=== PATIENT | male | born 1955 | race Caucasian/White ===

== ENCOUNTER 2020-04-28 08:33 | Emergency (ER) | payer OTHER ==
[~2020-04-28] VITALS: Ht 167.6 cm; Wt 68.0 kg
[~2020-04-28 08:33] MED LIST: AUGMENTIN 875-1 EACH PO; LITHIUM CARBON300 M3 PO; PROPRANOLOL 1010 M1 PO; RISPERDAL0.5 MG PO; RISPERDAL4 M1 PO; TRILEPTAL600 MG PO
[2020-04-28] MEDS ORDERED: VISTARIL 25 MG25 M1 PO (08:53)
--- NOTE | 2020-04-28 09:21 | EKG ---
[facility] [address] [email or web address] [address] ELECTROCARDIOGRAM REPORT Name: XOCHITL COBB Room #: [facility]..#: [id number] Admission: Attend Phys: Discharge: Date of : 57 Report #: [id number] THIS REPORT FOR: cc: Bob Killian MD [facility] ~ THIS REPORT FOR: //name// [facility] ED Test Date: 2020-04-28 Test Time: 08:35:08 Pat Name: XOCHITL COBB Department: Room: Gender: Jewel Lathe Operator: MAISHA : 1955 Requested By: Cristhian Zabala Order Number: [id number] MD: Bob Killian Measurements Intervals [place] Rate: 112 P: 79 MD: 146 QRS: 247 QRSD: 92 T: 75 QT: 335 QTc: 458 Interpretive Statements Sinus tachycardia Poor R wave progression Compared to ECG 05/04/2014 22:57:20 Heart rate has increased Electronically Signed On 04-28-2020 9:21:10 CDT by Bob Killian [email or web address] <ELECTRONICALLY SIGNED> By: Bob Killian MD, FACC 04/28/20 0921 0835 0835 Bob Killian MD, FACC /EPI
[2020-04-28 09:23] LABS: ANION GAP 10 mmol/L (7-16); APTT 25.7 Seconds (24.5-32.8); BUN 17 mg/dL (7-18); CALCIUM 8.9 mg/dL (8.5-10.1); CHLORIDE 107 mmol/L (98-107); CO2 26 mmol/L (21-32); CREATININE 1.9 mg/dL (0.7-1.3); GLUCOSE 109 mg/dL (74-106); POTASSIUM 3.9 mmol/L (3.5-5.1); PROTIME 10.1 Seconds (9.3-11.4); SODIUM 143 mmol/L (136-145)
[2020-04-28 09:32] LABS: ALBUMIN 3.6 g/dL (3.4-5.0); MAGNESIUM 2.1 mg/dL (1.8-2.4); SGOT 18 U/L (15-37); SGPT 16 U/L (30-65); TOTAL BILIRUBIN 0.2 mg/dL (0.2-1.0); TOTAL PROTEIN 7.2 g/dL (6.4-8.2); TROPONIN-I <0.06 ng/mL (<0.06)
[2020-04-28 09:32] LABS: BE(vivo) -1.1 mmol/L (-2 to +3); HCO3 24.8 mmol/L (22.0-26.0); PCO2 VENOUS 45.9 mmHg (41.0-51.0); PO2 VENOUS 60.3 mmHg (35.0-45.0)
[2020-04-28 09:41] LABS: ABSOLUTE NEUTROPHILS 4.5 thou/uL (1.4-8.2); EOSINOPHILS 4.5 % (0.0-3.0); HEMATOCRIT 38.5 % (42.0-52.0); HEMOGLOBIN 13.1 gm/dL (14.0-18.0); LYMPHOCYTES 23.3 % (24.0-44.0); MCH 29.7 pg (26.0-34.0); MCV 87.4 fL (80.0-100.0); PLATELET COUNT 225 thou/uL (150-400); POLYS 61.2 % (36.0-66.0); RDW 12.6 % (10.5-14.5); WBC 7.4 thou/uL (4.0-11.0)
[2020-04-28] MEDS ORDERED: PREDNISONE 20 M20 MG PO (09:56)
[2020-04-28] MEDS ORDERED: VENTOLIN HFA 1818 GM INH (09:56)
[2020-04-28] MEDS ORDERED: DOXYCYCLINE 10100 MG PO (09:56)
[2020-04-28 10:26] VITALS: BP 132/91
[2020-04-28 10:57] LABS: URINE BILIRUBIN NEGATIVE (Negative); URINE BLOOD NEGATIVE (Negative); URINE CLARITY CLEAR; URINE COLOR YELLOW; URINE GLUCOSE-RANDOM* NEGATIVE (Negative); URINE KETONES NEGATIVE (Negative); URINE LEUKOCYTES-REFLEX NEGATIVE (Negative); URINE NITRITE-REFLEX NEGATIVE (Negative); URINE PROTEIN (DIPSTICK) NEGATIVE (Negative); URINE UROBILINOGEN 0.2 E.U./dl (0.2-1.0)
[2020-04-28 11:35] LABS: AMP/METHAMP POSITIVE (Negative); BARBITURATES Negative (Negative); BENZODIAZEPINES Negative (Negative); COCAINE POSITIVE (Negative); METHADONE Negative (Negative); OPIATES Negative (Negative); PCP Negative (Negative)
== END 2020-04-28 10:26 | disposition home or self-care (01) ==
LOC: ER 08:33
PROVIDERS: Emergency Medicine
DX: J44.1 Chronic obstructive pulmonary disease with (acute) exacerbation (principal); Z20.828 Contact with and (suspected) exposure to other viral communicable diseases; R79.89 Other specified abnormal findings of blood chemistry; F17.210 Nicotine dependence, cigarettes, uncomplicated; Z88.1 Allergy status to other antibiotic agents; Z79.899 Other long term (current) drug therapy; Z90.49 Acquired absence of other specified parts of digestive tract